=== PATIENT | female | born 2000 | race Two or more races ===

== ENCOUNTER 2022-01-03 06:35 | Emergency (ER) | payer OTHER ==
[~2022-01-03] VITALS: Ht 154.9 cm; Wt 59.0 kg
[2022-01-03 07:44] VITALS: BP 112/84
[2022-01-03] MEDS ORDERED: ACETAMINOPHEN 500 MG TAB PO ONE (08:45)
[2022-01-03] MEDS ORDERED: DICL50TA4 PO (08:48)
== END 2022-01-03 09:00 | disposition home or self-care (01) ==
LOC: ER 06:35
DX: M77.8 Other enthesopathies, not elsewhere classified (principal); J45.909 Unspecified asthma, uncomplicated; G43.909 Migraine, unspecified, not intractable, without status migrainosus; Z79.899 Other long term (current) drug therapy